=== PATIENT | female | born 1945 | race Caucasian/White ===

== ENCOUNTER → 2016-12-17 | Day surgery (SDC) | payer MEDICARE ==
[~2016-12-17] MED LIST: ACETAMINOPHEN325 MG PO; AMITRIPTYLINE H25 MG PO; ANTIVERT PO; CALCIUM + VITAM1 TAB PO; CELEXA PO; DARVOCET-N 1001 TA1; FLEXERIL10 MG; FLEXERIL10 MG PO; HYDROCODON-ACE1 EAC4 PO; IBUPROFEN200 M1 PO; LIPITOR PO; LIPITOR20 MG PO; MEGACE ORA400 MG/10 PO; MELOXICAM15 MG PO; MOTRIN400 MG PO; NORCO 10-325 TA1 TAB PO; OMEPRAZOLE20 M2 PO; OMEPRAZOLE40 MG PO; PERCOCET 7.5-31 EACH PO; PERCOCET5/325 PO; PRIMIDONE250 MG PO; PRIMIDONE50 MG PO; SIMVASTATIN10 MG PO; SINGULAIR PO; TRAMADOL HCL50 M1; TRAMADOL HCL50 M2 PO; ZOCOR20 MG PO
--- NOTE | ~2016-12-17 | OR ---
Unit #: [id number] #: [id number] Patient: LAURENT VELEZ [id number] [address] [address] [id number] O MR#: [id number] NAME: LAURENT VELEZ. ROOM: Date of Procedure: 12/17/2016 Admission Date: 12/17/2016 Surgeon: Brad Archer M.D. : 1945 Attending Physician: Brad Archer M.D. Primary Care Physician: Aracelis Oden M.D. OPERATIVE REPORT PREOPERATIVE DIAGNOSES Neck pain, degenerative cervical disk disease, cervical spondylosis, cervical radiculopathy. POSTOPERATIVE DIAGNOSES Neck pain, degenerative cervical disk disease, cervical spondylosis, cervical radiculopathy. PROCEDURE PERFORMED Cervical epidural steroid injection with intravenous sedation and fluoroscopic guidance for needle localization. INDICATIONS FOR PROCEDURE The patient is a 71-year-old female with worsening neck and bilateral upper extremity pain right greater than left associated with previously mentioned nonsurgical diagnosis. She was treated with medical management. She was last treated several years ago with epidural steroids and did quite well. Based on history, pathology, symptomatology, plan is to repeat epidural steroid injection today of cervical spine. DESCRIPTION OF PROCEDURE The patient was placed in the seated position. Standard monitors were applied. 2 mg of Versed were given for sedation and anxiolysis, which were adequate. Vital signs remained stable. Sterile prep and drape then of the cervical area was performed. The skin then at the C5-6 level was localized with 1% lidocaine. An 18-gauge Hustead needle was then advanced via hanging drop technique and fluoroscopic guidance in toward the epidural space. After confirming proper positioning with fluoroscopy and radiographic contrast, 80 mg of Depo-Medrol and 2 mL of 0.25% bupivacaine were deposited. The patient tolerated the procedure otherwise well and was discharged to the recovery room in stable condition. Dictated by... Derek Blanca/handy TD: 12/17/2016 23:25 JOB #: [id number] Unit #: [id number] #: [id number] Patient: LAURENT VELEZ OPERATIVE REPORT X Brad Archer MD X PROCEDURE OPERATIVE NOTE
== END | disposition home or self-care (01) ==
LOC: CCSC 10:56
DX: M50.123 Cervical disc disorder at C6-C7 level with radiculopathy (principal); M47.22 Other spondylosis with radiculopathy, cervical region; M51.36 Other intervertebral disc degeneration, lumbar region
CPT/HCPCS: J1040; J2250

== ENCOUNTER → 2016-12-24 | Day surgery (SDC) | payer MEDICARE ==
--- NOTE | ~2016-12-24 | OR ---
Unit #: [id number] #: [id number] Patient: LAURENT VELEZ [id number] [address] [address] [id number] O MR#: [id number] NAME: LAURENT VELEZ ROOM: Date of Procedure: 12/24/2016 Admission Date: 12/24/2016 Surgeon: Brad Archer M.D. : 1945 Attending Physician: Brad Archer M.D. Primary Care Physician: Aracelis Oden M.D. OPERATIVE REPORT PREOPERATIVE DIAGNOSES 1. Back pain. 2. Radiculopathy. 3. Degenerative lumbar disk disease with myelopathy. POSTOPERATIVE DIAGNOSES 1. Back pain. 2. Radiculopathy. 3. Degenerative lumbar disk disease with myelopathy. PROCEDURE PERFORMED Lumbar epidural steroid injection with intravenous sedation and fluoroscopic guidance for needle localization. INDICATIONS FOR PROCEDURE The patient is a 71-year-old female with return of back and lower extremity pain associated with multilevel degenerative lumbar disk disease and spondylolisthesis, most significant at the L4-L5 level. Last epidural steroid injection was done in 2011. The patient had return of those symptoms, so plan is repeat an epidural steroid injection today. DESCRIPTION OF PROCEDURE The patient was placed in a seated position. Standard monitors were applied. 2 mg of Versed were given for sedation and anxiolysis, which were adequate. Vital signs remained stable. Sterile prep and drape then of the lumbar area was performed. The skin then at the L4-L5 level was localized with 1% lidocaine. An 18-gauge Hustead needle was then advanced via loss of resistance technique and fluoroscopic guidance in toward the epidural space. The patient tolerated the procedure otherwise well and was discharged to the recovery room in stable condition. Dictated by... Derek BlancaP/handy TD: 12/25/2016 01:21 JOB #: [id number] Unit #: [id number] #: [id number] Patient: LAURENT VELEZ OPERATIVE REPORT X Brad Archer MD X PROCEDURE OPERATIVE NOTE
== END | disposition home or self-care (01) ==
LOC: CCSC 10:32
PROVIDERS: Pain Medicine Pain Medicine
PROC: 3E0R3BZ Introduction of Anesthetic Agent into Spinal Canal, Percutaneous Approach (ICD-10-PCS; 2016-12-24)
PROC: 3E0R33Z Introduction of Anti-inflammatory into Spinal Canal, Percutaneous Approach (ICD-10-PCS; principal; 2016-12-24 11:30)
DX: M51.16 Intervertebral disc disorders with radiculopathy, lumbar region (principal); M51.06 Intervertebral disc disorders with myelopathy, lumbar region; M43.16 Spondylolisthesis, lumbar region; M54.12 Radiculopathy, cervical region; F32.9 Major depressive disorder, single episode, unspecified; Z79.899 Other long term (current) drug therapy
CPT/HCPCS: J1040; J2250

== ENCOUNTER → 2017-01-28 | Day surgery (SDC) | payer MEDICARE ==
--- NOTE | ~2017-01-28 | OR ---
Unit #: [id number] #: [id number] Patient: LAURENT VELEZ [id number] [address] [place], [place] [address] [id number] O MR#: [id number] NAME: LAURENT VELEZ ROOM: Date of Procedure: 01/28/2017 Admission Date: 01/28/2017 Surgeon: Brad Archer M.D. : 1945 Attending Physician: Brad Archer M.D. Primary Care Physician: Aracelis Oden M.D. OPERATIVE REPORT PREOPERATIVE DIAGNOSES 1. Back pain. 2. Radiculopathy. 3. Degenerative lumbar disk disease. 4. Spondylolisthesis. POSTOPERATIVE DIAGNOSES 1. Back pain. 2. Radiculopathy. 3. Degenerative lumbar disk disease. 4. Spondylolisthesis. PROCEDURE PERFORMED Lumbar epidural steroid injection with intravenous sedation and fluoroscopic guidance for needle localization. INDICATIONS FOR PROCEDURE The patient is a 71-year-old female with return of back pain. She has multilevel multifactorial degenerative disk and spine disease as well as spondylolisthesis, problems with nonsurgical in nature. She has done well with epidural steroid injections in the past. In the past, single injections given her quite long relief of her symptom complex. She had repeat injection done just several weeks ago helped initially, but did not last as long as they had in the past. Based on history, pathology, symptomatology, and prior responses, we are going to proceed with a repeat injection today. DESCRIPTION OF PROCEDURE The patient was placed in the seated position. Standard monitors were applied. 2 mg of Versed were given for sedation and anxiolysis, which were adequate. Vital signs remained stable. Sterile prep and drape then of the lumbar area was performed. The skin then to the right of midline at the L3-L4 level was localized with 1% lidocaine. An 18-gauge Everstringtead needle was then advanced via right paramedian approach and loss of resistance technique in toward the epidural space. The patient did not complain of pain or paresthesia during needle advancement. After confirming proper positioning with fluoroscopy and radiographic contrast, 80 mg of Depo-Medrol and 4 mL of 0.125% bupivacaine were deposited. The patient tolerated the procedure otherwise well and was discharged to the recovery room in stable condition. Unit #: [id number] #: [id number] Patient: LAURENT VELEZ Dictated by... Derek Blanca/handy TD: 01/29/2017 03:03 JOB #: [id number] OPERATIVE REPORT Page 1 of 1 X Brad Archer MD X PROCEDURE OPERATIVE NOTE
== END | disposition home or self-care (01) ==
LOC: CCSC 10:39
DX: M51.16 Intervertebral disc disorders with radiculopathy, lumbar region (principal); M43.16 Spondylolisthesis, lumbar region; M19.90 Unspecified osteoarthritis, unspecified site
CPT/HCPCS: J1040; J2250

== ENCOUNTER → 2017-02-11 | Day surgery (SDC) | payer MEDICARE ==
--- NOTE | ~2017-02-11 | OR ---
Unit #: [id number] #: [id number] Patient: LAURENT VELEZ [id number] [address] [place], [place] [address] [id number] O MR#: [id number] NAME: LAURENT VELEZ ROOM: Date of Procedure: 02/11/2017 Admission Date: 02/11/2017 Surgeon: Brad Archer M.D. : 1945 Attending Physician: Brad Archer M.D. Primary Care Physician: Aracelis Oden M.D. OPERATIVE REPORT PREOPERATIVE DIAGNOSES Back pain, radiculopathy, degenerative lumbar disk disease, spondylolisthesis. POSTOPERATIVE DIAGNOSES Back pain, radiculopathy, degenerative lumbar disk disease, spondylolisthesis. PROCEDURE PERFORMED Lumbar epidural steroid injection with intravenous sedation and fluoroscopic guidance for needle localization. INDICATIONS FOR PROCEDURE The patient is a 71-year-old female with return of back and radicular pain. She was treated previously mentioned nonsurgical pathology. In the past, she had done fairly well with single epidural steroid injection on p.r.n. basis. Last injection not worked quite as well. Plan is to repeat a small series to see if this will get better longer lasting improvement. She has failed extensive other attempts of conservative treatment. DESCRIPTION OF PROCEDURE The patient was placed in a seated position. Standard monitors were applied. 2 mg of Versed were given for sedation and anxiolysis, which were adequate. Vital signs remained stable. Sterile prep and drape then of the lumbar area was performed. The skin then to the right of midline at the L5 level was localized with 1% lidocaine. An 18-gauge Hustead needle was then advanced via right paramedian approach and loss of resistance technique in toward the epidural space. The patient did not complain of pain or paresthesia during needle advancement. After confirming proper positioning with fluoroscopy and radiographic contrast, 80 mg of Depo-Medrol and 6 mL of 0.125% bupivacaine were deposited. The patient tolerated the procedure otherwise well and was discharged to the recovery room in stable condition. Dictated by... Derek BlancaP/ericl TD: 02/11/2017 22:37 JOB #: [id number] Unit #: [id number] #: [id number] Patient: LAURENT VELEZ OPERATIVE REPORT Page 1 of 1 X Brad Archer MD X PROCEDURE OPERATIVE NOTE
== END | disposition home or self-care (01) ==
LOC: CCSC 10:56
DX: M51.16 Intervertebral disc disorders with radiculopathy, lumbar region (principal)
CPT/HCPCS: J1040; J2250

== ENCOUNTER → 2017-03-07 | Outpatient (CLI) | payer OTHER, MEDICARE ==
--- NOTE | ~2017-03-07 | CR63 ---
[facility] A Service of [facility] / [facility] RADIOLOGY TEXT RESULTS PATIENT: LAURENT VELEZ LOCATION: [facility] : [birth year] UNIT #: [id number] AGE: [address]: Aracelis Oden MD SEX: F ORDER DR: [id number] [facility] [address] [facility]. [place], [place] [address] [id number] O MR#: [id number] Acc #: [id number] NAME: LAURENT VELEZ : 1945 SEX: F STUDY DATE/TIME: 03/07/2017 16:37 UNIT: [facility] ROOM: STUDY DESCRIPTION: CR Chest 2 View Attending Physician: Aracelis Oden M.D. Referring Physician: Aracelis Oden M.D. Ordering Physician: Aracelis Oden M.D. Primary Care Physician: Aracelis Oden M.D. MEDICAL IMAGING REPORT This report is preliminary unless electronic signature is present EXAM PA and lateral chest 03/07/2017 HISTORY 71-year-old female with cough, shortness breath for 1 month. History of melanoma. COMPARISON PA and lateral chest radiograph 08/22/2016. FINDINGS No acute airspace disease. Benign calcified granulomatous changes within the left hilum and left mid-lung. No pleural effusion. No pneumothorax. No acute osseous abnormalities. IMPRESSION 1. No acute chest findings. Benign calcified granulomas changes. Dictated by... Cat Pisano M.D. THIS IS AN ELECTRONICALLY VERIFIED REPORT Cat Pisano M.D. at 03/10/2017 8:33 AM JONAS/carmen TD: 03/07/2017 21:06 JOB #: [id number] MEDICAL IMAGING REPORT Page 1 of 1 COPY
== END | disposition home or self-care (01) ==
LOC: CRAD 16:22
DX: R05 Cough (principal); R06.02 Shortness of breath; J84.10 Pulmonary fibrosis, unspecified
CPT/HCPCS: 71020

== ENCOUNTER → 2017-03-13 | Day surgery (SDC) | payer MEDICARE ==
--- NOTE | ~2017-03-13 | OR ---
Unit #: [id number] #: [id number] Patient: LAURENT VELEZ [id number] [address] [place], [place] [address] [id number] O MR#: [id number] NAME: LAURENT VELEZ ROOM: Date of Procedure: 03/13/2017 Admission Date: 03/13/2017 Surgeon: Brad Archer M.D. : 1945 Attending Physician: Brad Archer M.D. Primary Care Physician: Aracelis Oden M.D. OPERATIVE REPORT PREOPERATIVE DIAGNOSES Neck pain and cervical facet disease. POSTOPERATIVE DIAGNOSES Neck pain and cervical facet disease. PROCEDURE PERFORMED Cervical facet injection x2 levels with fluoroscopic guidance for needle localization. INDICATIONS FOR PROCEDURE The patient is a 71-year-old female with significant neck pain. She also has significant low back pain due to degenerative disk and spine disease and spondylolisthesis and neck pain is due to primarily of the cervical facet disease. She has degenerative cervical disk disease and failed to respond to conservative rehabilitative treatment and epidural steroids. Symptom complex is certainly consistent with facet etiology, so the plan is for trial of diagnostic and therapeutic facet injections to these from C2 through C7, most significant appears C4-C5 and C5-C6. DESCRIPTION OF PROCEDURE The patient was placed in the seated position. Standard monitors were applied. Sterile prep and drape of the cervical spine was performed. Fluoroscopy was then used to identify the location of the right-sided C4-C5 and C5-C6 facet joint. The skin lateral to this localized with 1% lidocaine. At each level, a 22-gauge Quincke point needle was advanced with fluoroscopic guidance to bring the needle tip to within the edge of the respective facet joints. After confirming proper positioning with fluoroscopy, a dose of 1 mL of mixture of 80 mg of Depo-Medrol and 3 mL of 0.25% bupivacaine were deposited, 0.5 mL was injected in the joint and 0.5 mL just outside the joint at each of these 2 levels. The needles were flushed and removed. The exact same procedure was repeated on the left at the left C4-C5 and C5-C6 facet joints. Again, fluoroscopic guidance was used to confirm placement of needle within the edge of those respective facet joints. Again, a dose of 1 mL mixture of 0.25% bupivacaine and 80 mg of Depo-Medrol were deposited. The needles were flushed and removed. The patient tolerated the procedure otherwise well and was discharged to the recovery room in stable condition. Dictated by... Unit #: [id number] #: [id number] Patient: LAURENT VELEZ Derek Blanca/hnady TD: 03/13/2017 23:42 JOB #: [id number] OPERATIVE REPORT Page 1 of 1 X Brad Archer MD X PROCEDURE OPERATIVE NOTE
== END | disposition home or self-care (01) ==
LOC: CCSC 08:21
DX: M50.10 Cervical disc disorder with radiculopathy, unspecified cervical region (principal); M47.22 Other spondylosis with radiculopathy, cervical region; M43.12 Spondylolisthesis, cervical region; M53.82 Other specified dorsopathies, cervical region
CPT/HCPCS: J1040; J2250

== ENCOUNTER → 2017-05-23 | Outpatient (CLI) | payer MEDICARE ==
--- NOTE | ~2017-05-23 | MY29 ---
[facility] A Service of [facility] / [facility] RADIOLOGY TEXT RESULTS PATIENT: LAURENT VELEZ LOCATION: [facility] : 43 UNIT #: [id number] AGE: [address]: Aracelis Oden MD SEX: F ORDER DR: [id number] [facility] [address] [facility]. [place], [place] [address] [id number] O MR#: [id number] Acc #: [id number] NAME: LAURENT VELEZ : 1945 SEX: F STUDY DATE/TIME: 05/23/2017 13:06 UNIT: [facility] ROOM: STUDY DESCRIPTION: [facility] SCREENING W/ CAD BILAT Attending Physician: Arcaelis Oden M.D. Referring Physician: Aracelis Oden M.D. Ordering Physician: Aracelis Oden M.D. Primary Care Physician: Aracelis Oden M.D. MEDICAL IMAGING REPORT This report is preliminary unless electronic signature is present EXAM Digital screening mammogram, 05/23/2017, [facility]. HISTORY 71-year-old woman, no risk elevation. Annual screen. COMPARISON Mammograms 10/22/2013, 05/09/2016. TECHNIQUE Digital imaging of each breast was completed utilizing screening protocol. Review includes FDA-approved CAD device. Breast parenchyma is partially fatty replaced. Fibronodular opacities remain upper outer quadrants bilaterally. These are stable. There is no interval occurring mass. There are no suspicious microcalcifications and no architectural deformity. IMPRESSION Stable benign mammogram. Annual screening recommended. Patients over the age of 40 are entered into a reminder system with target due date for the next mammogram. A result letter will also be sent to the patient. BIRADS: 2 Benign finding. Dictated by... Tano Bucio M.D. THIS IS AN ELECTRONICALLY VERIFIED REPORT Tano Bucio M.D. at 05/23/2017 3:38 PM JBB/abrahamw [facility] A Service of [facility] / [facility] RADIOLOGY TEXT RESULTS PATIENT: LAURENT VELEZ LOCATION: [facility] : 41 UNIT #: [id number] AGE: [address]: Aracelis Oden MD SEX: F ORDER DR: TD: 05/23/2017 15:29 JOB #: [id number] MEDICAL IMAGING REPORT Page 1 of 1 COPY
== END | disposition home or self-care (01) ==
LOC: CWCC 12:46
DX: Z12.31 Encounter for screening mammogram for malignant neoplasm of breast (principal)
CPT/HCPCS: G0202